=== PATIENT | male | born 1970 | race Caucasian/White ===

== ENCOUNTER 2020-04-15 18:55 | Emergency (ER) | payer OTHER, SELFPAY ==
[2020-04-15] MEDS ORDERED: Ondansetron ODT 4 MG TAB ONE (19:32)
[2020-04-15] MEDS ORDERED: Morphine 4 MG/ML VIAL ONE (19:32)
[2020-04-15] MEDS ORDERED: Adacel (T-DAP) 0.5 ML SYRINGE ONE (19:32)
[2020-04-15] MEDS ORDERED: Lidocaine 1% (PF) 30 ML VIAL ONE (20:13)
[2020-04-15] MEDS ORDERED: Fentanyl 100 MCG/2 ML VIAL ONE (20:13)
[2020-04-15] MEDS ORDERED: Promethazine HCl 25 MG/ML VIAL ONE (20:13)
[2020-04-15] MEDS ORDERED: Sodium Chloride 0.9% 100 ML ONE (20:19)
--- NOTE | 2020-04-15 20:36 | RAD ---
2 VIEWS LEFT FOREARM: Date: 04/15/2020 COMPARISON: None. HISTORY: Fall with broken arm. FINDINGS: Two views of the left forearm show a comminuted fracture of the distal radial metaphysis. No obvious ulnar fracture is seen. Soft tissue swelling and deformity are seen surrounding the wrist. IMPRESSION: Comminuted distal radius fracture. A dedicated wrist series is recommended for further evaluation. POS: [facility]
[2020-04-15] MEDS ORDERED: Bacitracin 1 PK ONE (20:41)
[2020-04-16 16:28] LABS: SARS-CoV-2 MS2 Positive; SARS-CoV-2 N Gene Negative; SARS-CoV-2 S Gene Negative; SARS-CoV-2 by NAA Not Detected (NotDetected); SARS-CoV-2 orf1ab Negative
== END 2020-04-15 21:08 | disposition home or self-care (01) ==
LOC: NAV ERS 18:55
DX: S52.502A Unspecified fracture of the lower end of left radius, initial encounter for closed fracture (principal); Z20.828 Contact with and (suspected) exposure to other viral communicable diseases; F17.220 Nicotine dependence, chewing tobacco, uncomplicated; W20.8XXA Other cause of strike by thrown, projected or falling object, initial encounter
CPT/HCPCS: 29125; 87635; 90471; 90715; 96372; 96374; 96375; J2001; J2270; J2550; J3010; Q0162; U0003